=== PATIENT | male | born 1950 | race Caucasian/White ===

== ENCOUNTER 2016-03-04 12:20 | Emergency (ER) | payer OTHER ==
--- NOTE | 2016-03-04 14:26 | ED CLINICAL REPORT ---
Clinical Report - Physicians/Mid Levels [facility] [address] [place] [address] 03/04/2016 12:24 Patient: CRISTINA WALKER V Time Seen: 13:31. Arrived- By private vehicle. Historian- patient. HISTORY OF PRESENT ILLNESS Chief Complaint: TENDER AREA. This started several days ago and is still present. It has been intermittent. It is described as painful. It has been located on the trunk. No cause has been identified. Similar symptoms previously: None. REVIEW OF SYSTEMS No chills, fever, sweats, calf pain or cough. No difficulty breathing, pedal edema, palpitations, abdominal pain or constipation. No diarrhea, nausea, vomiting or urinary problems. All systems otherwise negative, except as recorded above. PAST HISTORY Problems: no known problems. Additional Surgeries: Tonsillectomy. Medications: Aspirin Oral, as needed. Allergies: No Known Drug Allergy. SOCIAL HISTORY Current every day heavy tobacco smoker (cigarette)- 1 pack per day. No alcohol use or drug use. FAMILY HISTORY Denies family medical history. ADDITIONAL NOTES The nursing notes have been reviewed. PHYSICAL EXAM Vital Signs: 03/04/2016 12:52 BP: 120/84. HR: 89. RR: 18. O2 saturation: 98%. Temp: 97.6 F. Pain level now: 4/10. Have been reviewed. Appearance: Alert. Eyes: Pupils equal, round and reactive to light. ENT: Pharynx normal. Neck: Neck supple. CVS: Normal heart rate and rhythm. Heart sounds normal. Respiratory: Moderate left lower costochondral tenderness. The tenderness is well-localized and reproduces the patient's subjective complaint. Decreased breath sounds. Abdomen: Nontender. No organomegaly. Skin: Skin warm and dry. Extremities: Normal external inspection. LABS, X-RAYS, AND EKG X-Rays: Rib series negative. Chest X-ray: (IMPRESSION: 1. Negative chest. COPD). The X-rays were interpreted by the radiologist and contemporaneously by me. PROGRESS AND PROCEDURES Course of Care: Patient is stable. Patient/family counseled. Old medical records ordered. Disposition: Discharged. Condition: stable. CLINICAL IMPRESSION Costochondritis INSTRUCTIONS Warnings: GENERAL WARNINGS: Return or contact your physician immediately if your condition worsens or changes unexpectedly, if not improving as expected, or if other problems arise. Prescription Medications: Ibuprofen 600mg tablets: take 1 tablet orally every 8 hours as needed for pain. Dispense thirty (30). No refills. Understanding of the discharge instructions verbalized by patient. Follow-up with: [facility], , , [address], , [place], [id number] Follow up in seven days if not better. Call for an appointment. (Electronically signed by Jose Phillips MD 03/04/2016 17:54)
--- NOTE | 2016-03-04 14:26 | ED CLINICAL REPORT ---
Clinical Report - Physicians/Mid Levels [facility] [address] [place] [address] 03/04/2016 12:24 Patient: CRISTINA WALKER V Time Seen: 13:31. Arrived- By private vehicle. Historian- patient. HISTORY OF PRESENT ILLNESS Chief Complaint: TENDER AREA. This started several days ago and is still present. It has been intermittent. It is described as painful. It has been located on the trunk. No cause has been identified. Similar symptoms previously: None. REVIEW OF SYSTEMS No chills, fever, sweats, calf pain or cough. No difficulty breathing, pedal edema, palpitations, abdominal pain or constipation. No diarrhea, nausea, vomiting or urinary problems. All systems otherwise negative, except as recorded above. PAST HISTORY Problems: no known problems. Additional Surgeries: Tonsillectomy. Medications: Aspirin Oral, as needed. Allergies: No Known Drug Allergy. SOCIAL HISTORY Current every day heavy tobacco smoker (cigarette)- 1 pack per day. No alcohol use or drug use. FAMILY HISTORY Denies family medical history. ADDITIONAL NOTES The nursing notes have been reviewed. PHYSICAL EXAM Vital Signs: 03/04/2016 12:52 BP: 120/84. HR: 89. RR: 18. O2 saturation: 98%. Temp: 97.6 F. Pain level now: 4/10. Have been reviewed. Appearance: Alert. Eyes: Pupils equal, round and reactive to light. ENT: Pharynx normal. Neck: Neck supple. CVS: Normal heart rate and rhythm. Heart sounds normal. Respiratory: Moderate left lower costochondral tenderness. The tenderness is well-localized and reproduces the patient's subjective complaint. Decreased breath sounds. Abdomen: Nontender. No organomegaly. Skin: Skin warm and dry. Extremities: Normal external inspection. LABS, X-RAYS, AND EKG X-Rays: Rib series negative. Chest X-ray: (IMPRESSION: 1. Negative chest. COPD). The X-rays were interpreted by the radiologist and contemporaneously by me. PROGRESS AND PROCEDURES Course of Care: Patient is stable. Patient/family counseled. Old medical records ordered. Disposition: Discharged. Condition: stable. CLINICAL IMPRESSION Costochondritis INSTRUCTIONS Warnings: GENERAL WARNINGS: Return or contact your physician immediately if your condition worsens or changes unexpectedly, if not improving as expected, or if other problems arise. Prescription Medications: Ibuprofen 600mg tablets: take 1 tablet orally every 8 hours as needed for pain. Dispense thirty (30). No refills. Understanding of the discharge instructions verbalized by patient. Follow-up with: [facility], , , [address], , [place], [id number] Follow up in seven days if not better. Call for an appointment. (Electronically signed by Jose Phillips MD 03/04/2016 17:54)
--- NOTE | 2016-03-04 14:26 | ED NURSING NOTES ---
Clinical Report - Nurses [facility] [address] [place] [address] 03/04/2016 12:24 Patient: CRISTINA WALKER V TRIAGE Triage time 12:52. Acuity: LEVEL 4. Chief Complaint: CHEST PAIN. Alert. No acute distress. SIERRA COMA SCORE: Sierra Coma Scale: 15- eyes open spontaneously (4); best verbal response- oriented x 4 (5); best motor response- obeys commands (6). --13:02 Narda Hayward R.N. 12:52 03/04/16. BP: 120/84. HR: 89. RR: 18. O2 saturation: 98% on room air. Temp: 97.6 F (oral). Pain level now: 4/10. --13:02 Narda Hayward R.N. Weight: 63.5 kg stated. Height/Length: 68 inches Per Patient. BMI: 21.3. --12:58 Narda Hayward R.N. Medications Aspirin Oral, as needed. --12:54 Narda Hayward R.N. Medication/allergy information source: the patient. --13:02 Narda Hayward R.N. Allergies No Known Drug Allergy. --12:55 Narda Hayward R.N. History Arrived by private vehicle. Historian: patient. Unaccompanied. Primary physician (none). Onset. (about 3 days). Describes the quality as (intermittent). Relates location as in the left chest area. ( hurts when it is touched and when he moves a certain way, has a small "bump" there). SOCIAL HX: Heavy tobacco smoker- 1 pack per day. No alcohol use or drug use. FALL RISK ASSESSMENT: Fall risk assessment completed. No fall risk identified. FUNCTIONAL ASSESSMENT: Functional assessment: no impairments noted. LEARNING NEEDS ASSESSMENT: The learning needs assessment revealed no barriers. --13:02 Narda Haywrad R.N. PROBLEMS: no known problems. ADDITIONAL SURGERIES: Tonsillectomy. --12:56 Narda Hayward R.N. Assessment GENERAL / NEURO / PSYCH: Alert. Oriented X 4. Appears in no acute distress. Patient appears calm and cooperative. RESPIRATORY: Respirations not labored. SKIN: Skin is warm. --13:02 Narda Hayward R.N. Interventions ID band on patient. To treatment room. --13:02 Narda Hayward R.N. PHYSICAL ASSESSMENT 13:08 03/04/16. Ambulatory to room. GENERAL / NEURO / PSYCH: Alert. Oriented X 4. Appears in no acute distress. RESPIRATORY: Respirations not labored. SKIN: Skin is warm and dry. --13:08 Narda Hayward R.N. NURSING PROGRESS NOTES 13:08 03/04/16. Patient gowned. Head of bed elevated. Call light placed in reach. Side rails up x 1. Bed placed in lowest position. Brakes of bed on. --13:08 Narda Hayward R.N. 14:00. Overall patient status (up ambulating in room). RESPIRATORY: No respiratory distress. SKIN: Skin is warm and dry. --15:17 Narda Hayward R.N. 15:00. The patient is resting quietly. Overall patient status is the same- he states feels the same. RESPIRATORY: No respiratory distress. SKIN: Skin is warm and dry. --15:17 Narda Hayward R.N. DISPOSITION / DISCHARGE Departure time: 1500. Condition at departure: stable. No learning barriers present. Discharge instructions provided and reviewed with the patient. Reviewed medication(s). Prescription(s) given to the patient. Patient verbalized understanding. Written instructions provided in Lao. The patient was discharged home and unaccompanied at time of discharge. He left the Emergency Department via private vehicle. FALL RISK ASSESSMENT: Fall risk assessment completed. No fall risk identified. --15:18 Narda Hayward R.N. 15:00 03/04/16. BP: 121/80. HR: 86. RR: 18. O2 saturation: 100%. Pain level now: 05/25. --15:18 Narda Hayward R.N. Locked/Released at 03/04/2016 15:19 by Narda Hayward R.N.
--- NOTE | 2016-03-04 14:26 | ED ORDER SUMMARY ---
..... Patient: CRISTINA WALKER V OrderSheet [facility] VisitID: [id number] [address] [place] [address] 66y, M Registration Date/Time: 03/04/2016 ORDER SHEET Weight: 63.5 kg (stated) Allergies: No Known Drug Allergy GENERAL ORDERS: Chest 2V Urgent (13:55 03/04/2016 Abhishek BARBOSA) (Ack 13:58 NHouse ER Tech1) (14:27 NHouse ER Tech1) Ribs Unilat Left Urgent (13:56 03/04/2016 Abhishek BARBOSA) (Ack 13:58 NHouse ER Tech1) (14:27 NHouse ER Tech1) MEDICATION ORDERS: IV FLUIDS: ORDER SHEET NOTES: [Electronically signed by Narda Hayward R.N. (15:19 03/04/2016)] [Electronically signed by Jose Phillips MD (17:54 03/04/2016)] [Electronically locked/signed by Narda Hayward R.N. (15:19 03/04/2016)]
--- NOTE | 2016-03-04 14:26 | ED ORDER SUMMARY ---
..... Patient: CRISTINA WALKER V OrderSheet [facility] VisitID: [id number] [address] [place] [address] 66y, M Registration Date/Time: 03/04/2016 ORDER SHEET Weight: 63.5 kg (stated) Allergies: No Known Drug Allergy GENERAL ORDERS: Chest 2V Urgent (13:55 03/04/2016 Abhishek BARBOSA) (Ack 13:58 NHouse ER Tech1) (14:27 NHouse ER Tech1) Ribs Unilat Left Urgent (13:56 03/04/2016 Abhishek BARBOSA) (Ack 13:58 NHouse ER Tech1) (14:27 NHouse ER Tech1) MEDICATION ORDERS: IV FLUIDS: ORDER SHEET NOTES: [Electronically signed by Narda Hayward R.N. (15:19 03/04/2016)] [Electronically signed by Jose Phillips MD (17:54 03/04/2016)] [Electronically locked/signed by Narda Hayward R.N. (15:19 03/04/2016)]
--- NOTE | 2016-03-04 14:27 | DIAGNOSTIC IMAGING REPORT ---
PROCEDURE: XR CHEST 2 VIEW INDICATION: TENDER TECHNIQUE: PA and lateral views. COMPARISON: None. FINDINGS: Lungs are clear and hyperexpanded. Heart and mediastinum are normal. Thorax is normal. IMPRESSION: 1. Negative chest. COPD
--- NOTE | 2016-03-04 14:30 | DIAGNOSTIC IMAGING REPORT ---
PROCEDURE: XR RIBS UNILATERAL - LEFT INDICATION: PAIN TECHNIQUE: Two views of the left ribs with single PA view chest. COMPARISON: Chest films same date FINDINGS: LEFT RIBS: No displaced rib fractures. No suspicious rib lesions. IMPRESSION: 1. Intact left ribs.
--- NOTE | 2016-03-04 17:54 | ED MAR SUMMARY ---
..... Medication Administration Record [facility] [address] [place], [place] [id number] Patient: CRISTINA WALKER V Visit ID: [id number] 66y, M Weight: 63.5 kg Height/Length: 68 in BMI: 21.3 ALLERGIES: No Known Drug Allergy
--- NOTE | 2016-03-04 17:54 | ED DISCHARGE INSTRUCTIONS ---
Patient: CRISTINA WALKER V General Instructions [facility] VisitID: [id number] [address] [place] [address] 66y, M Registration Date/Time: 03/04/2016 Costochondritis INSTRUCTIONS Warnings: GENERAL WARNINGS: Return or contact your physician immediately if your condition worsens or changes unexpectedly, if not improving as expected, or if other problems arise. Prescription Medications: Ibuprofen 600mg tablets: take 1 tablet orally every 8 hours as needed for pain. Dispense thirty (30). No refills. Understanding of the discharge instructions verbalized by patient. Follow-up with: [facility], , , [address], [place], [address] Follow up in seven days if not better. Call for an appointment. ADDITIONAL INFORMATION Chest Wall Pain: Costochondritis The chest pain that you have had today is caused by Costochondritis. This condition is due to an inflammation of the cartilage joining the ribs to the breastbone. It is not caused by heart or lung problems. Although the exact cause for costochondritis is not known, it often occurs during times of emotional stress. It can be painful, but it is not dangerous. It usually disappears within one to two weeks, but may recur. Rarely, a more serious condition may cause symptoms similar to costochondritis; therefore, watch for the warning signs listed below. Home Care: If you feel that emotional stress is a cause of your condition, try to identify sources of that stress. It may not be obvious! Learn ways to deal with the stress in your life such as regular exercise, muscle relaxation, meditation, or simply taking time out for yourself. For more information about this, consult your doctor or go to a local bookstore and review books and tapes available on the subject of stress reduction. You may use acetaminophen (Tylenol) or ibuprofen (Motrin, Advil) to control pain, unless another pain medicine was prescribed. [ NOTE: If you have liver disease or ever had a stomach ulcer, talk with your doctor before using these medicines.] The use of heat (hot wet compress or heating pad) with or without local analgesic creams (Deep Heat Rub, Ammon Christine) will be helpful to reduce pain. Follow Up with your doctor as directed or sooner if you do not start to improve within the next two days. Get Prompt Medical Attention if any of the following occur: A change in the type of pain: if it feels different, becomes more severe, lasts longer, or spreads into your shoulder, arm, neck, jaw or back Shortness of breath or increased pain with breathing Weakness, dizziness, or fainting Cough with dark colored sputum (phlegm) or blood Abdominal pain Dark red or black stools Fever of 100.4F (38C) or higher, or as directed by your healthcare provider Ibuprofen Oral tablet What is this medicine? IBUPROFEN (eye BYOO proe fen) is a non-steroidal anti-inflammatory drug (NSAID). It is used for dental pain, fever, headaches or migraines, osteoarthritis, rheumatoid arthritis, or painful monthly periods. It can also relieve minor aches and pains caused by a cold, flu, or sore throat. How should I use this medicine? Take this medicine by mouth with a glass of water. Follow the directions on the prescription label. Take this medicine with food if your stomach gets upset. Try to not lie down for at least 10 minutes after you take the medicine. Take your medicine at regular intervals. Do not take your medicine more often than directed. A special MedGuide will be given to you by the pharmacist with each prescription and refill. Be sure to read this information carefully each time. Talk to your consulting intern regarding the use of this medicine in children. Special care may be needed. What side effects may I notice from receiving this medicine? Side effects that you should report to your doctor or health family day carer as soon as possible: allergic reactions like skin rash, itching or hives, swelling of the face, lips, or tongue black or bloody stools, blood in the urine or in vomit breathing problems changes in vision chest pain general ill feeling or flu-like symptoms nausea or vomiting redness, blistering, peeling or loosening of the skin, including inside the mouth slurred speech or weakness on one side of the body stomach pain unexplained weight gain or swelling unusually weak or tired yellowing of eyes or skin Side effects that usually do not require medical attention (report to your doctor or health family day carer if they continue or are bothersome): constipation or diarrhea dizziness gas or heartburn stomach upset What may interact with this medicine? Do not take this medicine with any of the following medications: cidofovir ketorolac methotrexate pemetrexed This medicine may also interact with the following medications: alcohol aspirin diuretics lithium other drugs for inflammation like prednisone warfarin What if I miss a dose? If you miss a dose, take it as soon as you can. If it is almost time for your next dose, take only that dose. Do not take double or extra doses. Where should I keep my medicine? Keep out of the reach of children. Store at room temperature between 15 and 30 degrees C (59 and 86 degrees F). Keep container tightly closed. Throw away any unused medicine after the expiration date. What should I tell my health care provider before I take this medicine? They need to know if you have any of these conditions: asthma cigarette smoker drink more than 3 alcohol containing drinks a day heart disease or circulation problems such as heart failure or leg edema (fluid retention) high blood pressure kidney disease liver disease stomach bleeding or ulcers an unusual or allergic reaction to ibuprofen, aspirin, other NSAIDS, other medicines, foods, dyes, or preservatives or trying to get breast-feeding What should I watch for while using this medicine? Tell your doctor or healthcare professional if your symptoms do not start to get better or if they get worse. This medicine does not prevent heart attack or stroke. In fact, this medicine may increase the chance of a heart attack or stroke. The chance may increase with longer use of this medicine and in people who have heart disease. If you take aspirin to prevent heart attack or stroke, talk with your doctor or health family day carer. Do not take other medicines that contain aspirin, ibuprofen, or naproxen with this medicine. Side effects such as stomach upset, nausea, or ulcers may be more likely to occur. Many medicines available without a prescription should not be taken with this medicine. This medicine can cause ulcers and bleeding in the stomach and intestines at any time during treatment. Ulcers and bleeding can happen without warning symptoms and can cause . To reduce your risk, do not smoke cigarettes or drink alcohol while you are taking this medicine. You may get drowsy or dizzy. Do not drive, use machinery, or do anything that needs mental alertness until you know how this medicine affects you. Do not stand or sit up quickly, especially if you are an older patient. This reduces the risk of dizzy or fainting spells. This medicine can cause you to bleed more easily. Try to avoid damage to your teeth and gums when you brush or floss your teeth. You have been given the following additional information: Chest Wall Pain, Costochondritis Ibuprofen Oral tablet (Electronically signed by Jose Phillips MD 03/04/2016 17:54)
--- NOTE | 2016-03-04 17:54 | ED DISCHARGE INSTRUCTIONS ---
Patient: CRISTINA WALKER V General Instructions [facility] VisitID: [id number] [address] [place] [address] 66y, M Registration Date/Time: 03/04/2016 Costochondritis INSTRUCTIONS Warnings: GENERAL WARNINGS: Return or contact your physician immediately if your condition worsens or changes unexpectedly, if not improving as expected, or if other problems arise. Prescription Medications: Ibuprofen 600mg tablets: take 1 tablet orally every 8 hours as needed for pain. Dispense thirty (30). No refills. Understanding of the discharge instructions verbalized by patient. Follow-up with: [facility], , , [address], [place], [address] Follow up in seven days if not better. Call for an appointment. ADDITIONAL INFORMATION Chest Wall Pain: Costochondritis The chest pain that you have had today is caused by Costochondritis. This condition is due to an inflammation of the cartilage joining the ribs to the breastbone. It is not caused by heart or lung problems. Although the exact cause for costochondritis is not known, it often occurs during times of emotional stress. It can be painful, but it is not dangerous. It usually disappears within one to two weeks, but may recur. Rarely, a more serious condition may cause symptoms similar to costochondritis; therefore, watch for the warning signs listed below. Home Care: If you feel that emotional stress is a cause of your condition, try to identify sources of that stress. It may not be obvious! Learn ways to deal with the stress in your life such as regular exercise, muscle relaxation, meditation, or simply taking time out for yourself. For more information about this, consult your doctor or go to a local bookstore and review books and tapes available on the subject of stress reduction. You may use acetaminophen (Tylenol) or ibuprofen (Motrin, Advil) to control pain, unless another pain medicine was prescribed. [ NOTE: If you have liver disease or ever had a stomach ulcer, talk with your doctor before using these medicines.] The use of heat (hot wet compress or heating pad) with or without local analgesic creams (Deep Heat Rub, Ammon Christine) will be helpful to reduce pain. Follow Up with your doctor as directed or sooner if you do not start to improve within the next two days. Get Prompt Medical Attention if any of the following occur: A change in the type of pain: if it feels different, becomes more severe, lasts longer, or spreads into your shoulder, arm, neck, jaw or back Shortness of breath or increased pain with breathing Weakness, dizziness, or fainting Cough with dark colored sputum (phlegm) or blood Abdominal pain Dark red or black stools Fever of 100.4F (38C) or higher, or as directed by your healthcare provider Ibuprofen Oral tablet What is this medicine? IBUPROFEN (eye BYOO proe fen) is a non-steroidal anti-inflammatory drug (NSAID). It is used for dental pain, fever, headaches or migraines, osteoarthritis, rheumatoid arthritis, or painful monthly periods. It can also relieve minor aches and pains caused by a cold, flu, or sore throat. How should I use this medicine? Take this medicine by mouth with a glass of water. Follow the directions on the prescription label. Take this medicine with food if your stomach gets upset. Try to not lie down for at least 10 minutes after you take the medicine. Take your medicine at regular intervals. Do not take your medicine more often than directed. A special MedGuide will be given to you by the pharmacist with each prescription and refill. Be sure to read this information carefully each time. Talk to your shell press operator regarding the use of this medicine in children. Special care may be needed. What side effects may I notice from receiving this medicine? Side effects that you should report to your doctor or health manager intensive care as soon as possible: allergic reactions like skin rash, itching or hives, swelling of the face, lips, or tongue black or bloody stools, blood in the urine or in vomit breathing problems changes in vision chest pain general ill feeling or flu-like symptoms nausea or vomiting redness, blistering, peeling or loosening of the skin, including inside the mouth slurred speech or weakness on one side of the body stomach pain unexplained weight gain or swelling unusually weak or tired yellowing of eyes or skin Side effects that usually do not require medical attention (report to your doctor or health manager intensive care if they continue or are bothersome): constipation or diarrhea dizziness gas or heartburn stomach upset What may interact with this medicine? Do not take this medicine with any of the following medications: cidofovir ketorolac methotrexate pemetrexed This medicine may also interact with the following medications: alcohol aspirin diuretics lithium other drugs for inflammation like prednisone warfarin What if I miss a dose? If you miss a dose, take it as soon as you can. If it is almost time for your next dose, take only that dose. Do not take double or extra doses. Where should I keep my medicine? Keep out of the reach of children. Store at room temperature between 15 and 30 degrees C (59 and 86 degrees F). Keep container tightly closed. Throw away any unused medicine after the expiration date. What should I tell my health care provider before I take this medicine? They need to know if you have any of these conditions: asthma cigarette smoker drink more than 3 alcohol containing drinks a day heart disease or circulation problems such as heart failure or leg edema (fluid retention) high blood pressure kidney disease liver disease stomach bleeding or ulcers an unusual or allergic reaction to ibuprofen, aspirin, other NSAIDS, other medicines, foods, dyes, or preservatives or trying to get breast-feeding What should I watch for while using this medicine? Tell your doctor or healthcare professional if your symptoms do not start to get better or if they get worse. This medicine does not prevent heart attack or stroke. In fact, this medicine may increase the chance of a heart attack or stroke. The chance may increase with longer use of this medicine and in people who have heart disease. If you take aspirin to prevent heart attack or stroke, talk with your doctor or health manager intensive care. Do not take other medicines that contain aspirin, ibuprofen, or naproxen with this medicine. Side effects such as stomach upset, nausea, or ulcers may be more likely to occur. Many medicines available without a prescription should not be taken with this medicine. This medicine can cause ulcers and bleeding in the stomach and intestines at any time during treatment. Ulcers and bleeding can happen without warning symptoms and can cause . To reduce your risk, do not smoke cigarettes or drink alcohol while you are taking this medicine. You may get drowsy or dizzy. Do not drive, use machinery, or do anything that needs mental alertness until you know how this medicine affects you. Do not stand or sit up quickly, especially if you are an older patient. This reduces the risk of dizzy or fainting spells. This medicine can cause you to bleed more easily. Try to avoid damage to your teeth and gums when you brush or floss your teeth. You have been given the following additional information: Chest Wall Pain, Costochondritis Ibuprofen Oral tablet (Electronically signed by Jose Phillips MD 03/04/2016 17:54)
--- NOTE | 2016-03-04 17:54 | ED MAR SUMMARY ---
..... Medication Administration Record [facility] [address] [place] [id number] Patient: CRISTINA WALKER V Visit ID: [id number] 66y, M Weight: 63.5 kg Height/Length: 68 in BMI: 21.3 ALLERGIES: No Known Drug Allergy
--- NOTE | 2016-03-04 17:54 | ED MED RECONCILIATION SUMMARY ---
Patient: CRISTINA WALKER V Medication Reconciliation Report [facility] VisitID: [id number] [address] [place] [address] 66y, M Registration Date/Time: 03/04/2016 Weight: 63.5 kg Height/Length: 68 in. BMI: 21.3 ALLERGIES: No Known Drug Allergy The patient's Home Medications are listed below: THE FOLLOWING MEDICATIONS NEED TO BE RECONCILED: Aspirin Oral The source(s) of the original Home Medication information: patient The following Medications were given to the patient in the Emergency Department: None. The following Medications were prescribed to the patient: Ibuprofen 600mg tablets: take 1 tablet orally every 8 hours as needed for pain. Dispense thirty (30). No refills. -- Jose Phillips MD
--- NOTE | 2016-03-04 17:54 | ED MED RECONCILIATION SUMMARY ---
Patient: CRISTINA WALKER V Medication Reconciliation Report [facility] VisitID: [id number] [address] [place] [address] 66y, M Registration Date/Time: 03/04/2016 Weight: 63.5 kg Height/Length: 68 in. BMI: 21.3 ALLERGIES: No Known Drug Allergy The patient's Home Medications are listed below: THE FOLLOWING MEDICATIONS NEED TO BE RECONCILED: Aspirin Oral The source(s) of the original Home Medication information: patient The following Medications were given to the patient in the Emergency Department: None. The following Medications were prescribed to the patient: Ibuprofen 600mg tablets: take 1 tablet orally every 8 hours as needed for pain. Dispense thirty (30). No refills. -- Jose Phillips MD
== END 2016-03-04 14:55 | disposition home or self-care (01) ==
LOC: ED SRH 12:20
DX: M94.0 Chondrocostal junction syndrome [Tietze] (principal); F17.210 Nicotine dependence, cigarettes, uncomplicated